=== PATIENT | female | born 1995 | race Two or more races ===

== ENCOUNTER 2024-05-17 20:06 | Emergency (ER) | payer MEDICAID, SELFPAY ==
[2024-05-17 20:07] VITALS: BMI 29.8
[2024-05-17 20:16] VITALS: BP 137/86; PULSE 82; RESP 18; TEMP 36.9; O2SAT 100
--- NOTE | 2024-05-17 20:36 | PD.EDABDPN ---
ED Abdominal Pain RME/HPI General Chief Complaint: Abdominal Pain Stated complaint: Flank pain right and left. No NV Time seen by provider: 05/17/24 20:13 Arrival date/time: 05/17/24 20:06 RME / HPI RME / HPI narrative: Patient is a 28-year-old female presents with complaint of epigastric pain for months. States the pain is worse today. Also complains of back pain. Denies any nausea or vomiting. No diarrhea. Denies any previous history of abdominal surgeries. Related Data Home Medications ?Medication ?Instructions ?Recorded ?Confirmed Vitamin * 1 tab PO QDAY #0 tabs 01/13/17 Previous Rx's ?Medication ?Instructions ?Recorded umlvijlevj-ahuztihvwtiva-[id number] 1 cap PO TID PRN pain #30 caps 03/03/19 50 mg-300 mg-40 mg capsule (Fioricet) ibuprofen 800 mg tablet 800 mg PO TID #30 tabs 08/05/19 cyclobenzaprine 5 mg tablet 5 mg PO TID PRN muscle spasm #21 10/05/21 tabs ibuprofen 800 mg tablet 800 mg PO TID PRN pain #30 tabs 10/05/21 carboxymethylcellulose sodium 1 % 2 drp ophthalmic (eye) Q2H PRN dry 04/10/22 eye drops (Artificial Tears eye(s) #15 mL (carboxymethylcellulose)) prednisone 50 mg tablet 50 mg PO QDAY #6 tabs 04/10/22 omeprazole 20 mg capsule,delayed 20 mg PO QDAY 14 days #14 caps 05/17/24 release Allergies Allergy/AdvReac Type Severity Reaction Status Date / Time No Known Allergies Allergy Verified 11/12/22 08:47 Review of Systems Review of Systems Systems Reviewed: All systems reviewed, normal except as documented ED Exam Narrative Physical exam: Constitutional: no acute distress, age appropriate, non-toxic Eyes: PERRL, conjunctivae w/o pallor, EOMI HENT: normocephalic, atraumatic. Oral mucosa moist Respiratory Effort: no stridor, effort normal, no retractions Breath sounds: Clear bilaterally; No rales, No rhonchi, No wheezing Cardiovascular: regular rhythm, S1 and S2 normal, no murmur Abdominal: soft; non-distended. Mild epigastric tenderness. No rebound tenderness or guarding. Musculoskeletal: no deformities, no swelling, no LE edema Skin: warm, dry; No rash Neurology: alert, oriented X 4. Normal gait. Moves all extremities spontaneously. Psychology: cooperative, normal mood Course Quality Measures none Orders Category Date Time Status US gall bladder Stat Exams 05/17/24 20:36 Completed CBC Stat Lab 05/17/24 20:42 Completed CMP [Comprehensive Metabolic Panel] Stat Lab 05/17/24 20:42 Completed HCG Qualitative,Urine Stat Lab 05/17/24 21:22 Completed Lipase Stat Lab 05/17/24 20:42 Completed Urinalysis Stat Lab 05/17/24 21:22 Completed Ketorolac Inj [Toradol Inj] Med 05/17/24 20:36 Discontinued 30 mg IM X1 ONE mg Hyd/Al Hyd/Michelle Susp [Maalox Susp] Med 05/17/24 20:36 Discontinued 30 ml PO X1 ONE Vital Signs Vital signs: Vital Signs Temperature 98.5 F 05/17/24 20:16 Pulse Rate 82 05/17/24 20:16 Respiratory Rate 18 05/17/24 20:16 Blood Pressure 137/86 H 05/17/24 20:16 Pulse Oximetry (%) 100 05/17/24 20:16 Oxygen Delivery Method Room Air 05/17/24 20:16 Abdominal Pain MDM MDM Narrative MDM Narrative:: 28-year-old female presents with right upper quadrant pain and back pain. Differential diagnoses include gastritis, cholecystitis, choledocholithiasis, pancreatitis Ultrasound shows some wall thickening of the gallbladder, but no gallstones. No leukocytosis. Highly doubt cholecystitis. Normal bilirubin and normal common duct so do not suspect choledocholithiasis. Lipase is normal to rule out pancreatitis. Patient reassessed and reports feeling better after medications. Counseled follow-up with primary care. Return to ED precautions given. Patient data External records reviewed:: [facility] previous records Clinical information provided by:: patient Social determinants that could affect healthcare access:: none Patient has the following chronic illnesses:: None How is presenting disease/condition affected by chronic disease/condition?: no chronic disease Evaluation data The following diagnostics were reviewed and interpreted by me:: lab results and radiology exam(s) Lab and/or radiology exams considered but not ordered:: None Interpretation Summary: CBC shows no leukocytosis or anemia CMP shows no electrolyte abnormalities, no JUAQUIN. LFTs less than 3x upper limit of normal UA unremarkable, no evidence of UTI Ordering Physician: Esdras Chu PA-C Date of Service: 05/17/24 Procedure(s): US gall bladder Accession Number(s): [id number] cc: Esdras Chu PA-C; Derek Longo MD; NO PRIMARY/FAMILY,PHYSICIAN~ Examination: Abdomen sonogram, Limited Date and time of exam: May 17, 2024 2050 hrs. Indications: Epigastric pain beginning one month ago worse the last 4 days Technique: Grayscale sonographic images upright abdomen Findings: Negative for gallstones Gallbladder wall is thickened 0.46 cm Common bile duct 0.3 cm Pancreatic head 3.4 cm Liver 14.9 cm fatty infiltration Normal hepatopedal portal venous flow Patent IVC Impression: Abnormally thickened gallbladder wall 0.46 cm Prominent pancreatic head Consider MRCP follow-up to exclude cholecystitis and best assess the pancreas Medications / Prescriptions Medications or Prescriptions considered but not ordered:: N/A Medication administrations:: Medication Administration History Discontinued Medications Al Hydrox/Mg Hydrox/Simethicone (Mg Hyd/Al Hyd/Michelle (Maalox Reg) Susp 30 Ml Udc) 30 ml PO X1 ONE Stop: 05/17/24 20:37 Last Admin: 05/17/24 21:18 Dose: 30 ml Documented By: Ketorolac Tromethamine (Ketorolac Inj 30 Mg/Ml Vial) 30 mg IM X1 ONE Stop: 05/17/24 20:37 Last Admin: 05/17/24 21:17 Dose: 30 mg Documented By: See above Consultations Consultation(s) initiated? (list below): No Diagnosis Differential diagnosis abdominal pain: abdominal pain, constipation, diverticulitis, gastroenteritis, pancreatitis and other (Cholecystitis) Most likely diagnosis given after review of the tests above:: Gastritis Admission Indicated Admission indicated?: not indicated Admission Request Was there a request for admission?: No Disposition Plan Disposition Plan: Discharge Discharge Attestation Discharge Attestation: The patient and all family members were given an opportunity to ask questions and understood the discharge instructions. Discharge instructions specifically effects, indications for sooner follow up or return to the emergency department, and the expected course of current diagnosis. Patient condition: Stable Discharge Plan Plan Patient Disposition: HOME (Self Care) Prescriptions/Referrals Prescriptions/Med Rec: New omeprazole 20 mg capsule,delayed release(DR/EC) 20 mg PO QDAY 14 Days Qty: 14 0RF No Action Vitamin * 1 EACH tablet 1 tab PO QDAY Qty: 0 ibuprofen 800 mg tablet 800 mg PO TID PRN (Reason: pain) Qty: 30 0RF cyclobenzaprine 5 mg tablet 5 mg PO TID PRN (Reason: muscle spasm) Qty: 21 0RF efufrhxsdt-hpocjjohjtsmx-pjzs [Fioricet] 50-300-40 mg capsule 1 cap PO TID PRN (Reason: pain) Qty: 30 0RF ibuprofen 800 mg tablet 800 mg PO TID Qty: 30 0RF prednisone 50 mg tablet 50 mg PO QDAY Qty: 6 0RF Artificial Tears (cmc) 1 % drops 2 drp ophthalmic (eye) Q2H PRN (Reason: dry eye(s)) Qty: 15 1RF Referrals: No Primary/Family,Physician [Primary Care Provider] - In 1 week Problem List Clinical Impression: Acute epigastric pain, Gastritis Patient/Caregiver Discharge Instructions Education Materials: ED Gastritis (Adult) Additional Instructions: Follow up with your doctor if not better in 3 days. Take your medications as prescribed. Return to the ED for any new or worsening symptoms for further evaluation and treatment. Print Language: French Stand Alone Forms: Charu Award Info., Patient Portal Info Letter
[2024-05-17 21:16] LABS: Basophils % (Auto) 1 % (0-2.5); Eosinophils # (Auto) 0.1 Thou/mm3 (0.0-0.5); Eosinophils % (Auto) 2 % (0-10); Hematocrit 35.9 % (36.0-46.0); Immature Granulocytes % (Auto) 0 % (0-0); Immature Granulocytes Auto 0.02 Thou/mm3 (0.00-0.00); Lymphocytes # (Auto) 2.1 Thou/mm3 (1.0-4.8); Lymphocytes % (Auto) 34 % (10-50); Mean Corpuscular HGB Conc 33.4 g/dl (31.0-37.0); Mean Corpuscular Hemoglobin 28.9 pg (25.0-35.0); Mean Corpuscular Volume 87 fL (80-100); Monocytes # (Auto) 0.5 Thou/mm3 (0.0-0.8); Monocytes % (Auto) 8 % (0-12); Neutrophils # (Auto) 3.4 Thou/mm3 (1.8-7.7); Neutrophils % (Auto) 56 % (37-80); Nucleated Red Blood Cell % 0 /100 WBC (0); Platelet Count 290 Thou/mm3 (140-440); RDW Standard Deviation 43.2 fL (36.4-46.3); Red Blood Count 4.15 Miln/mm3 (4.00-5.20); White Blood Count 6.1 Thou/mm3 (3.6-11.0)
[2024-05-17] MEDS: KETOROLAC INJ 30 MG/ML VIAL IM (21:17)
[2024-05-17] MEDS: MG HYD/AL HYD/SIME (Maalox Reg) SUSP 30 ML UDC PO (21:18)
[2024-05-17 21:30] LABS: Alanine Aminotransferase 16 U/L (10-49); Albumin, Serum 4.6 gm/dL (3.5-5.0); Albumin/Globulin Ratio 1.5 (1.2-2.2); Alkaline Phosphatase 81 U/L (46-116); Anion Gap 9 (7-16); Aspartate Amino Transferase 19 U/L (0-34); BUN/Creatinine Ratio 12 Ratio (12-20); Bilirubin,Total 0.3 mg/dL (0.3-1.2); Blood Urea Nitrogen 13 mg/dL (9-23); Carbon Dioxide 25.3 mMol/L (20.0-31.0); Chloride 105 mMol/L (98-107); Creatinine (Component) 1.1 mg/dL (0.6-1.3); Estimated Creatinine Clearance 81.6 mL/min (>60); Globulin 3.1 gm/dL (2.3-3.5); Glucose 103 mg/dL (74-106); Lipase 54 U/L (12-53); Osmolality,Calculated 277 (275-295); Potassium 3.8 mMol/L (3.4-5.1); Sodium 139 mMol/L (136-145); Total Protein 7.7 gm/dL (5.7-8.2); eGFR > 60 See Note
[2024-05-17 21:39] LABS: Collection Type, Urine Clean Catch
[2024-05-17 21:46] LABS: Bilirubin,Urine Negative (Negative); Blood,Urine Negative (Negative); Clarity,Urine Clear (Clear/Hazy); Color,Urine Colorless (Lt Yel-Yel); Glucose, Urine Negative (Negative); Ketones,Urine Negative (Negative); Leukocyte Esterase,Urine Negative (Negative); Nitrite,Urine Negative (Negative); Protein,Urine Negative (Neg - Trace); RBC,Urine 1 /hpf (0-3); Specific Gravity,Urine 1.008 (1.001-1.035); Squamous Epithelial Cell,Urine 3 /hpf (0-5); Urobilinogen,Urine Negative mg/dL (0.0-1.0); WBC,Urine 1 /hpf (0-5)
[2024-05-17 21:48] LABS: HCG Qualitative,Urine Negative
== END 2024-05-17 22:31 | disposition home or self-care (01) ==
PROVIDERS: Physician Assistant; Emergency Provider Emergency Medicine
DX: K29.70 Gastritis, unspecified, without bleeding (principal)
CPT/HCPCS: 36415; 76705; 80053; 81001; 81025; 83690; 85025; 96372; 99284; J1885; A9270

== ENCOUNTER 2025-01-17 13:01 | Emergency (ER) | payer MEDICAID, SELFPAY ==
[2025-01-17 13:27] VITALS: BP 125/82; PULSE 68; RESP 16; TEMP 36.8; O2SAT 100; BMI 30.2
--- NOTE | 2025-01-17 13:37 | XR_ITS ---
EXAMINATION: Ankle, left 3 views. Technique: Ankle AP, oblique, lateral 3 views Date and time of exam: January 17, 2025, 1349 hours INDICATIONS: Injury to the ankle yesterday, ankle pain. FINDINGS: Lateral malleolar soft tissue swelling. No ankle fracture or dislocation IMPRESSION: No ankle fracture or dislocation
--- NOTE | 2025-01-17 13:38 | PD.EDANKLE ---
Lower Extremity Injury RME/HPI General Chief Complaint: Ankle/Foot Injury Stated Complaint: TWISTED L) ANKLE Time Seen by Provider: 01/17/25 13:03 Source: patient Arrival date/time: 01/17/25 13:01 29-year-old female with no known medical history presents to the emergency room with a chief complaint of tenderness and swelling to her left ankle after a ground-level fall that occurred 1 day ago. Mode of arrival: ambulatory Limitations: no limitations Related Data Home Medications ?Medication ?Instructions ?Recorded ?Confirmed Vitamin * 1 tab PO QDAY #0 tabs 01/13/17 Previous Rx's ?Medication ?Instructions ?Recorded qyfuqkphsq-dzpnornsyecqg-lmczdrjj 1 cap PO TID PRN pain #30 caps 03/03/19 50 mg-300 mg-40 mg capsule (Fioricet) ibuprofen 800 mg tablet 800 mg PO TID #30 tabs 08/05/19 cyclobenzaprine 5 mg tablet 5 mg PO TID PRN muscle spasm #21 10/05/21 tabs ibuprofen 800 mg tablet 800 mg PO TID PRN pain #30 tabs 10/05/21 carboxymethylcellulose sodium 1 % 2 drp ophthalmic (eye) Q2H PRN dry 04/10/22 eye drops (Artificial Tears eye(s) #15 mL (carboxymethylcellulose)) prednisone 50 mg tablet 50 mg PO QDAY #6 tabs 04/10/22 Allergies Allergy/AdvReac Type Severity Reaction Status Date / Time No Known Allergies Allergy Verified 01/17/25 13:03 Past Medical History Past Medical History CARDIAC: Negative Congestive Heart Failure RESPIRATORY: Negative Chronic Obstructive Pulmonary Disease (COPD) GENITOURINARY: Negative Renal Disease ENDOCRINE: Negative Diabetes Mellitus Type 1 or Diabetes Mellitus Type 2 OTHER HISTORY: Negative Blood Transfusions Social History SMOKING STATUS: Never smoker ED Exam General Limitations: Present no limitations General appearance: Present alert and in no apparent distress Head Head exam: Present atraumatic Eye Eye exam: Present normal appearance, PERRL and EOMI ENT ENT exam: Present normal exam, normal oropharynx and mucous membranes moist Neck Neck exam: Present normal inspection, full ROM and trachea midline Chest Chest inspection: Present normal inspection and symmetric chest wall rise Respiratory Respiratory exam: Present normal lung sounds bilaterally Cardiovascular Cardiovascular exam: Present regular rate, normal rhythm and normal heart sounds Abdominal Exam Abdominal exam: Present soft and normal bowel sounds Extremities Exam Extremities exam: Present normal inspection and full ROM Expanded Lower Extremity Exam Hip/Pelvis exam: Present normal inspection Upper leg exam: Present normal inspection Knee exam: Present normal inspection Lower leg exam: Present normal inspection Ankle exam: Present tenderness and swelling Back Exam Back exam: Present normal inspection and full ROM Neurological Exam Neurological exam: Present alert, oriented X3 and CN II-XII intact Psychiatric Psychiatric exam: Present normal affect and normal mood Skin Skin exam: Present warm, dry, intact and normal color Course Quality Measures none Orders Category Date Time Status yovany wrap [Splint / Immobilizer] STAT Care 01/17/25 13:37 Active XR ankle comp LT min 3V Stat Exams 01/17/25 13:37 Completed Ketorolac Inj [Toradol Inj] Med 01/17/25 13:39 Discontinued 30 mg IM X1 ONE Vital Signs Vital signs: Vital Signs Temperature 98.3 F 01/17/25 13:27 Pulse Rate 68 01/17/25 13:27 Respiratory Rate 16 01/17/25 13:27 Blood Pressure 125/82 01/17/25 13:27 Pulse Oximetry (%) 100 01/17/25 13:27 Oxygen Delivery Method Room Air 01/17/25 13:27 Extremity Injury, Lower MDM Narrative MDM Narrative:: 29-year-old female with no known medical history presents to the emergency room with a chief complaint of tenderness and swelling to her left ankle after a ground-level fall that occurred 1 day ago. Patient is hemodynamically stable and in no apparent distress Physical examination shows tenderness and swelling to the patient's left ankle. X-ray of the ankle was completed and was negative for any acute fracture or dislocation An Yovany wrap was placed for comfort Patient was discharged and educated to follow-up with primary care provider in the next 24 to 48 hours and return to the emergency room for any evidence of worsening signs or symptoms Patient data External records reviewed:: [facility] previous records Clinical information provided by:: patient Social determinants that could affect healthcare access:: none Patient has the following chronic illnesses:: No chronic illness How is presenting disease/condition affected by chronic disease/condition?: no chronic disease Evaluation data The following diagnostics were reviewed and interpreted by me:: lab results and radiology exam(s) Lab and/or radiology exams considered but not ordered:: Labs and radiology exams considered and ordered Interpretation Summary: Ankle [id number]: Lateral malleolar soft tissue swelling. No ankle fracture or dislocation IMPRESSION: No ankle fracture or dislocation Medications / Prescriptions Medications or Prescriptions considered but not ordered:: Medication given Medication administrations:: Medication Administration History Discontinued Medications Ketorolac Tromethamine (Ketorolac Inj 60 Mg/2 Ml Vial) 30 mg IM X1 ONE Stop: 01/17/25 13:40 Last Admin: 01/17/25 13:43 Dose: 30 mg Documented By: OA Comments: not Medication given Consultations Consultation(s) initiated? (list below): No Diagnosis Extremity Injury, Lower Differential Diagnosis: ankle sprain and strain and ankle fracture Most likely diagnosis given after review of the tests above:: Ankle sprain and strain Admission Indicated Admission indicated?: not indicated Admission Request Was there a request for admission?: No Disposition Plan Disposition Plan: Discharge Discharge Attestation Discharge Attestation: The patient and all family members were given an opportunity to ask questions and understood the discharge instructions. Discharge instructions specifically effects, indications for sooner follow up or return to the emergency department, and the expected course of current diagnosis. Patient condition: Stable Discharge Plan Plan Patient Disposition: HOME (Self Care) Discharge Disposition comment: Stable Prescriptions/Referrals Prescriptions/Med Rec: No Action Vitamin * 1 EACH tablet 1 tab PO QDAY Qty: 0 ibuprofen 800 mg tablet 800 mg PO TID PRN (Reason: pain) Qty: 30 0RF cyclobenzaprine 5 mg tablet 5 mg PO TID PRN (Reason: muscle spasm) Qty: 21 0RF bajtggespv-ushibcapwkkoz-cnto [Fioricet] 50-300-40 mg capsule 1 cap PO TID PRN (Reason: pain) Qty: 30 0RF ibuprofen 800 mg tablet 800 mg PO TID Qty: 30 0RF prednisone 50 mg tablet 50 mg PO QDAY Qty: 6 0RF Artificial Tears (cmc) 1 % drops 2 drp ophthalmic (eye) Q2H PRN (Reason: dry eye(s)) Qty: 15 1RF Referrals: Yg Rahman PA-C [Primary Care Provider] - In 1 week Problem List Clinical Impression: Ankle sprain and strain Patient/Caregiver Discharge Instructions Additional Instructions: Please follow-up with your primary care provider in the next 24 to 48 hours X-rays of the right ankle were negative for any acute fracture or dislocation For any evidence of worsening signs or symptoms return to emergency room immediately Print Language: Czech Stand Alone Forms: Char[employer] Award Info., Work/School Release, Patient Portal Info Letter PA/[employer] Supervising Physician PA/CANDY WAFF[employer]SEM[employer] Supervising Physician: Dr. Reyes
[2025-01-17] MEDS: KETOROLAC INJ 60 MG/2 ML VIAL 30 MG IM (13:43)
== END 2025-01-17 15:25 | disposition home or self-care (01) ==
PROVIDERS: Emergency Provider Nurse Practitioner Family; PCP Physician Assistant
DX: S93.402A Sprain of unspecified ligament of left ankle, initial encounter (principal); X50.1XXA Overexertion from prolonged static or awkward postures, initial encounter
CPT/HCPCS: 73610; 96372; 99283; J1885